=== PATIENT | male | born 1960 | race Caucasian/White ===

== ENCOUNTER 2019-10-18 16:40 | Emergency (ER) | payer OTHER ==
[~2019-10-18] VITALS: Ht 177.8 cm; Wt 81.8 kg
[2019-10-18] MEDS ORDERED: fentaNYL PF VIAL 100 MCG/2 ML VIAL IVP ONE (18:00)
[2019-10-18] MEDS ORDERED: IV NORMAL SALINE 1000ML BAG 1,000 ML IV ONE (18:00)
[2019-10-18 18:02] LABS: BASO # 0.1 x10^3/uL (0.0-0.2); BASO % 1 % (0-3); EOS # 0.2 x10^3/uL (0.0-0.7); EOS % 2 % (0-3); HEMATOCRIT 41.6 % (39.0-53.0); HEMOGLOBIN 14.4 g/dL (13.0-17.5); LYMPH % 25 % (24-48); MEAN CORPUSCULAR HEMOGLOBIN 30 pg (25-35); MEAN CORPUSCULAR HGB CONC 35 g/dL (31-37); MEAN CORPUSCULAR VOLUME 88 fL (79-100); MONO # 0.7 x10^3/uL (0.0-1.1); MONO % 8 % (0-9); NEUT # 5.3 x10^3/uL (1.8-7.7); NEUT % 64 % (31-73); PLATELET COUNT 335 x10^3/uL (140-400); RED BLOOD COUNT 4.75 x10^6/uL (4.30-5.70); RED CELL DISTRIBUTION WIDTH 14.5 % (11.5-14.5); WHITE BLOOD COUNT 8.3 x10^3/uL (4.0-11.0)
[2019-10-18 18:08] LABS: CALCIUM 9.3 mg/dL (8.5-10.1); CREATININE 1.1 mg/dL (0.7-1.3)
[2019-10-18 18:14] LABS: ALBUMIN 3.7 g/dL (3.4-5.0); ALBUMIN/GLOBULIN RATIO 0.9 (1.0-1.7); TOTAL BILIRUBIN 0.2 mg/dL (0.2-1.0); TOTAL PROTEIN 7.9 g/dL (6.4-8.2)
--- NOTE | 2019-10-18 18:26 | RAD ---
Exam performed : 3 views rightelbow. Indication: Crush injury right elbow Date of Service: 10/18/2019 Comparison: None available Discussion: AP, oblique and lateral radiographs of the elbow reveal the osseous structures to be intact and well aligned. The joint space is well-preserved. There is diffuse soft tissue swelling surrounding the elbow joint. Small punctate densities are seen overlying the olecranon process. Impression: Diffuse soft tissue swelling surrounding the right elbow joint. Punctate densities posterior to the origin from process perhaps represents a small avulsion or soft tissue foreign body. Electronically signed by: Jordyn Carter MD (10/18/2019 6:23 PM) [facility]
--- NOTE | 2019-10-18 18:35 | RAD ---
Exam performed: Soft tissue ultrasound right elbow. HISTORY: Right elbow pain and swelling with redness. DATE OF SERVICE: 10/18/2019. COMPARISON: None available Findings : Real-time grayscale and color-flow imaging of the right elbow was performed in the area of pain, swelling and redness. Diffuse soft tissue swelling is identified. There is a small complex fluid collection measuring 2.5 x 0.08 centimeter without vascularity. IMPRESSION: Diffuse soft tissue swelling with a small complex collection measuring 2.5 x 0.08 cm in the area of concern perhaps small hematoma. Developing abscess is not excluded however considered less likely. Short-term interval follow-up ultrasound exam may be obtained to ensure interval resolution. Electronically signed by: Jordyn Carter MD (10/18/2019 6:32 PM) [facility]
[2019-10-18] MEDS ORDERED: CLINDAMYCIN 600MG PREMIX 50 ML IV ONE (19:00)
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
[2019-10-18 19:29] VITALS: BP 131/77
[2019-10-18] MEDS ORDERED: IBUP-1007 PO (19:32)
[2019-10-18] MEDS ORDERED: CLIN300C8 PO (19:32)
== END 2019-10-18 19:36 | disposition home or self-care (01) ==
LOC: ER 16:40
DX: S50.311A Abrasion of right elbow, initial encounter (principal); L03.114 Cellulitis of left upper limb; F17.200 Nicotine dependence, unspecified, uncomplicated; G89.29 Other chronic pain; Y08.89XA Assault by other specified means, initial encounter; Y93.89 Activity, other specified; Y92.89 Other specified places as the place of occurrence of the external cause; Y99.8 Other external cause status
CPT/HCPCS: 36415; 73080; 76881; 80053; 83605; 85025; 86140; 96365; 96375; 99285; J3010; J3490; J7030